=== PATIENT | female | born 1975 | race Caucasian/White ===

== ENCOUNTER → 2019-05-30 09:55 | Outpatient (CLI) | payer OTHER, SELFPAY ==
[2019-05-30 09:47] VITALS: BMI 21.7
--- NOTE | 2019-05-30 10:00 | RAD_ITS ---
STUDY: X-RAY - RIGHT HAND REASON FOR EXAM: Bilateral hand pain and swelling, no specific injury. TECHNIQUE: 3 view(s) of the hand. COMPARISON: None. FINDINGS: Normal radiocarpal articulation. Normal distal radioulnar joint. Normal visualized carpal bones. Normal carpal articulations Normal carpometacarpal articulation of the thumb. Normal second through fifth carpometacarpal joints. Normal metacarpi. Normal metacarpophalangeal joint of the thumb. Normal interphalangeal joint of the thumb. Normal proximal and distal phalanges of the thumb. Normal metacarpophalangeal joints of the second through fifth fingers. Normal proximal and distal interphalangeal joints of the second through fifth fingers. Normal phalanges of the second through fifth fingers. The soft tissue structures are unremarkable. RAD/Hand Min 3 Views IMPRESSION: Normal x-ray examination of the right hand. Electronically Signed: Cameron Islas MD at 10:18 EDT Tel , Service support ,
--- NOTE | 2019-05-30 10:00 | RAD_ITS ---
STUDY: X-RAY - LEFT HAND REASON FOR EXAM: Bilateral hand pain and swelling, no specific injury. TECHNIQUE: 3 view(s) of the hand. COMPARISON: None. FINDINGS: Normal radiocarpal articulation. Normal distal radioulnar joint. There is a small bone island in the distal radius. Normal visualized carpal bones. Normal carpal articulations Normal carpometacarpal articulation of the thumb. Normal second through fifth carpometacarpal joints. Normal metacarpi. Normal metacarpophalangeal joint of the thumb. Normal interphalangeal joint of the thumb. Normal proximal and distal phalanges of the thumb. Normal metacarpophalangeal joints of the second through fifth fingers. Normal proximal and distal interphalangeal joints of the second through fifth fingers. Normal phalanges of the second through fifth fingers. The soft tissue structures are unremarkable. RAD/Hand Min 3 Views IMPRESSION: Normal x-ray examination of the left hand. Electronically Signed: Cameron Islas MD at 10:17 EDT Tel , Service support ,
[2019-05-30 15:44] LABS: Lyme Ab Screen Interpretation REF LAB
[2019-05-30 17:45] LABS: Absolute Lymphocyte Count 3.16 X10^3/uL (0.83-4.51); Absolute Neutrophil Count 3.5 X10^3/uL (2.0-7.7); Basophil# 0.03 X10^3/uL; Basophil% 0.4 % (0-1); Eosinophil# 0.14 X10^3/uL; Eosinophils% 1.9 % (0-5); Hematocrit 41.7 % (37-47); Hemoglobin 14.2 g/dL (12.0-15.0); Lymphocyte # 3.16 X10^3/ul (4.0); Lymphocyte % 43.1 % (19-41); Mean Corp Hgb Conc 34.1 g/dL (32-36); Mean Corpuscular Hgb 30.6 pg (27.0-32.0); Mean Corpuscular Volume 89.9 fL (81-99); Mean Platelet Vol. 9.2 fl (6.2-12.0); Monocyte# 0.49 X10^3/uL; Monocyte% 6.7 % (0-10); NRBC Flagged by Analyzer 0 % (0-5); Neutrophil # 3.49 X10^3/uL (2.7-7.7); Neutrophil % 47.6 % (47-70); Platelet Count 259 K/mm3 (150-450); RBC Distribution Width CV 11.9 % (11.6-14.6); RBC Distribution Width SD 38.7 fl (35.1-43.9); Red Blood Count 4.64 M/mm3 (4.2-5.4); White Blood Count 7.3 K/mm3 (4.4-11.0)
[2019-05-30 18:07] LABS: Erythrocyte Sedimentation Rate < 1 mm/hr (0-20)
[2019-05-30 18:11] LABS: CRP < 2.90 mg/L (0.0-3.0); Rheumatoid Factor < 10.0 IU/mL (<15)
[2019-06-04 13:57] LABS: ANTINUCLEAR ANTIBODIES DIRECT Negative (Negative)
[2019-06-05 14:38] LABS: CCP IgG Antibodies 5 units (0-19); HLA B27 Negative (.); Lyme Scn Total Ab w/Rflx <0.91 ISR (0.00-0.90)
== END ==
PROVIDERS: Family Provider Family Medicine; PCP Family Medicine; Referring Provider Orthopaedic Surgery; Visit Provider Orthopaedic Surgery
DX: G56.23 Lesion of ulnar nerve, bilateral upper limbs (principal); M62.541 Muscle wasting and atrophy, not elsewhere classified, right hand; M79.641 Pain in right hand; M79.642 Pain in left hand
CPT/HCPCS: 36415; 73130; 81374; 85025; 85652; 86038; 86140; 86200; 86431; 86618

== ENCOUNTER → 2019-06-19 10:37 | Outpatient (CLI) | payer OTHER, SELFPAY ==
[2019-05-30 09:47] VITALS: BMI 21.7
--- NOTE | 2019-06-19 11:31 | RAD_ITS ---
STUDY: X-RAY - PELVIS AND RIGHT HIP REASON FOR EXAM: Female, 43 years old. Polyarthralgia TECHNIQUE: 3 views of the pelvis and hip. COMPARISON: None. FINDINGS: There is a non-specific bowel gas pattern. Normal visualized soft tissue structures. Normal bilateral iliac wings, sacroiliac joints and visualized sacrum. Normal bilateral superior and inferior pubic rami. Normal pubic symphysis. Normal bilateral ischial tuberosities. Normal visualized femoral head. Normal acetabulum. Normal hip joint. RAD/HIP, UNI W/ Pelvis 2-3 Views IMPRESSION: Normal x-ray examination of the pelvis and hip. Electronically Signed: Ozzie Best MD at 16:23 EDT , Service support ,
--- NOTE | 2019-06-19 11:37 | RAD_ITS ---
STUDY: X-RAY - LEFT HAND REASON FOR EXAM: Female, 43 years old. Polyarthralgia TECHNIQUE: 2 view(s) of the hand. COMPARISON: Prior study of 05/30/2019 FINDINGS: Normal radiocarpal articulation. Normal distal radioulnar joint. Normal visualized carpal bones. Normal carpal articulations Normal carpometacarpal articulation of the thumb. Normal second through fifth carpometacarpal joints. Normal metacarpi. Normal metacarpophalangeal joint of the thumb. Normal interphalangeal joint of the thumb. Normal proximal and distal phalanges of the thumb. Normal metacarpophalangeal joints of the second through fifth fingers. Normal proximal and distal interphalangeal joints of the second through fifth fingers. Normal phalanges of the second through fifth fingers. The soft tissue structures are unremarkable. RAD/Hand 2 Views IMPRESSION: Normal x-ray examination of the hand. Electronically Signed: Ozzie Best MD at 16:20 EDT , Service support ,
--- NOTE | 2019-06-19 11:40 | RAD_ITS ---
STUDY: X-RAY - RIGHT HAND REASON FOR EXAM: Female, 43 years old. Polyarthralgia TECHNIQUE: 2 view(s) of the hand. COMPARISON: Prior study of 05/30/2019 FINDINGS: Normal radiocarpal articulation. Normal distal radioulnar joint. Normal visualized carpal bones. Normal carpal articulations Normal carpometacarpal articulation of the thumb. Normal second through fifth carpometacarpal joints. Normal metacarpi. Normal metacarpophalangeal joint of the thumb. Normal interphalangeal joint of the thumb. Normal proximal and distal phalanges of the thumb. Normal metacarpophalangeal joints of the second through fifth fingers. Normal proximal and distal interphalangeal joints of the second through fifth fingers. Normal phalanges of the second through fifth fingers. The soft tissue structures are unremarkable. RAD/Hand 2 Views IMPRESSION: Normal x-ray examination of the hand. Electronically Signed: Ozzie Best MD at 16:21 EDT , Service support ,
[2019-06-19 12:09] LABS: CPK Total, Creatine Kinase 94 U/L (26-192)
[2019-06-19 12:15] LABS: Vitamin D,25 Hydroxy 31.4 ng/mL (29.95-100.01)
[2019-06-21 12:24] LABS: CCP IgG Antibodies 3 units (0-19); t-Transglutaminase IgA <2 U/mL (0-3)
== END ==
PROVIDERS: Family Provider Family Medicine; PCP Family Medicine
DX: M25.50 Pain in unspecified joint (principal)
CPT/HCPCS: 36415; 73120; 73502; 82306; 82550; 83516; 86038; 86200; 86235

== ENCOUNTER → 2021-01-16 09:01 | Outpatient (CLI) | payer OTHER, SELFPAY ==
[2019-05-30 09:47] VITALS: BMI 21.7
[2021-01-16 10:26] LABS: Anion Gap 4 (5-15); BUN 10 mg/dL (7-18); BUN/Creat Ratio 11.7 RATIO (10-20); Chloride 105 mmol/L (98-107); Cholesterol 214 mg/dL (200); Creatinine, Serum 0.86 mg/dL (0.55-1.02); EST Glomerular Filtration Rate 77 mL/min (>60); Est Glom Filt Rate - Afr Amer 93 mL/min (>60); Free T3 2.9 pg/mL (2.18-3.98); Glucose 90 mg/dL (74-106); High Density Lipoprotein 45 mg/dL; Potassium 3.9 mmol/L (3.5-5.1); Sodium Level 138 mmol/L (136-145); T4 Free Direct 1.05 ng/dL (0.76-1.46); T4 Total, Thyroxin 9.2 ug/dL (4.8-13.9); Thyroid Stim Hormone (TSH) 1.17 uIU/mL (0.358-3.74); Triglycerides 54 mg/dL; Very Low Density Lipoprotein 11 mg/dL (5-40)
[2021-01-19 16:08] LABS: Thyroid Peroxidase AB 13 IU/mL (0-34)
[2021-01-19 19:25] LABS: Thyroglobulin Antibody < 1.0 IU/mL (0.0-0.9); Thyroxin Bind Glob (TBG) 19 ug/mL (13-39)
== END ==
PROVIDERS: PCP Family Medicine; Referring Provider Family Medicine; Visit Provider Family Medicine
DX: Z00.00 Encounter for general adult medical examination without abnormal findings (principal); M79.7 Fibromyalgia; E03.9 Hypothyroidism, unspecified
CPT/HCPCS: 36415; 80048; 80061; 84436; 84439; 84442; 84443; 84481; 86376; 86800

== ENCOUNTER → 2022-04-01 | Outpatient (CLI) | payer OTHER, SELFPAY ==
--- NOTE | 2022-04-01 14:29 | BI_ITS ---
MAMMOGRAPHY - BILATERAL DIAGNOSTIC REASON FOR EXAM: Female, 46 years old. ABNORMAL MAMM PERTINENT HISTORY: Non-contributory. TECHNIQUE: Digital examination. Mediolateral oblique (MLO) and craniocaudad (CC) views of both breasts were obtained. CAD: CAD was performed on this study. COMPARISON: 10/12/2021, 08/04/2021 FINDINGS: Breast Composition: The breasts are extremely dense, which lowers the sensitivity of mammography. There are no dominant masses or suspicious calcifications. No other significant abnormalities are identified. BI/DIAG MAMM W/CAD, BILAT IMPRESSION: Stable bilateral diagnostic mammogram. Ultrasound of the previously noted mass in the right breast is recommended. ASSESSMENT CATEGORY: BIRADS Category 0: Incomplete. Need additional imaging evaluation. A letter regarding these results will be sent to the patient by the facility within 30 days. FOLLOW UP RECOMMENDATION: Ultrasound Recommended. (I) Approximately 10% of breast cancers are not detected by mammography. A normal mammogram should not delay biopsy of a clinically suspicious abnormality. Electronically Signed: Neil Restrepo MD at 15:26 EDT ,
--- NOTE | 2022-04-01 14:33 | US_ITS ---
STUDY: ULTRASOUND BREAST - RIGHT REASON FOR EXAM: Female, 46 years old. Short interval follow-up TECHNIQUE: Axial and longitudinal images of the RIGHT breast were performed with a high resolution ultrasound transducer. # OF IMAGES: 21 COMPARISON: Diagnostic mammogram earlier today, ultrasound 12/02/2020 FINDINGS: RIGHT Breast: Heterogeneous background echotexture. At 10 o''clock, 5 cm from nipple, ultrasound demonstrates an increase in the size of the oval parallel circumscribed hypoechoic mass with no posterior features from 3 x 9 mm to 4 x 11 mm an ultrasound-guided vacuum-assisted core biopsy is recommended.: Next At 10 o''clock, 3 cm nipple, ultrasound demonstrates no change in the 5 mm oval parallel circumscribed hypoechoic mass. Breast MRI may be useful to evaluate both areas. US/Breast Limited Unilateral IMPRESSION: Enlarging hypoechoic mass and ultrasound-guided vacuum-assisted core biopsy is recommended. MRI may also be useful for the other hypoechoic area. ASSESSMENT CATEGORY: BIRADS Category 4: Suspicious - Biopsy Should Be Considered. A letter regarding these results will be sent to the patient by the facility within 30 days. Electronically Signed: Neil Restrepo MD at 16:33 EDT ,
== END | disposition home or self-care (01) ==
LOC: OPBI 14:28
PROVIDERS: PCP Family Medicine; Visit Provider Family Medicine
DX: D24.1 Benign neoplasm of right breast (principal); R92.2 Inconclusive mammogram
CPT/HCPCS: 76642; 77062; 77066; G0279

== ENCOUNTER → 2022-04-18 | Outpatient (CLI) | payer OTHER, SELFPAY ==
--- NOTE | 2022-04-18 | BRBX_PTH ---
PATIENT: GINA GARCIAS LOC: [facility] U#:[id number] AGE/SX: 46/F ROOM: RE04/18/[address]: Dr. Tiffany Solomon MD : 1975 BED: DIS: 04/18/2022 SPEC #: [id number] RECD: 04/18/22 11:49 STATUS: BRENDAN REQ #: [id number] JOEL: 04/18/22 00:[address]: Tiffany Solomon DEPT: SURGICAL PATHOLOGY RECD BY: Damaris Friedman ENTERED: 04/18/22 12:49 SP TYPE: BREAST BX OTHR DR: Dr. Ngozi Paredes MD Tissues: A - Right breast, NOS B - Right breast, NOS Procedures: Surgery Specimen Level IV HEADER OPERATION: Right breast biopsy x2 PRE-OP DIAGNOSIS: Right breast mass x2 TISSUE SUBMITTED: A ? Right breast mass 10 o?clock, 5 cm, B - Right breast mass 11 o?clock, 3 cm MICROSCOPIC DIAGNOSIS A. Right breast mass, 10 o?clock, 5 cm from nipple, core biopsy: Fragments of benign breast tissue, no pathologic diagnosis. Negative for atypia or malignancy. See comment. B. Right breast mass, 11 o?clock, 3 cm from nipple, core biopsy: Fragments of benign breast tissue with focal dense fibrosis and ductal dilatation. Negative for atypia or malignancy. See comment. SJ:dakota 04/19/2022 COMMENT A & B. Correlation with clinical, radiologic findings and appropriate follow up are necessary. MICROSCOPIC DESCRIPTION Slides are reviewed. GROSS DESCRIPTION A - Received in fixative is one container labeled with the patient's name and designated right breast, 10 o?clock, 5 cm. The specimen consists of multiple fragments of woods-yellow fibroadipose tissue that in aggregate measure 2 x 0.2 x 0.1 cm. The entire specimen is submitted in one cassette. B - Received in fixative is one container labeled with the patient's name and designated right breast, 11 o?clock, 3 cm. The specimen consists of multiple elongated fragments of woods-yellow fibroadipose tissue that in aggregate measure 1.5 x 0.3 x 0.1 cm. The entire specimen is submitted in one cassette. / ALPHONSE:dakota 04/18/2022 TC:5 CPT: 76382 x2
--- NOTE | 2022-04-18 10:05 | US_ITS ---
STUDY: ULTRASOUND BREAST - RIGHT REASON FOR EXAM: Female, 46 years old. Ultrasound guided right breast biopsy. TECHNIQUE: Axial and longitudinal images of the RIGHT breast were performed with a high resolution ultrasound transducer. # OF IMAGES: 33 COMPARISON: Comparison is made with prior ultrasound of the breasts dated 04/01/2022. FINDINGS: RIGHT Breast: Under direct sonographic guidance, the surgeon performed an ultrasound-guided breast biopsies of the nodular density at the 10 o''clock position of the breast are 5 cm from the nipple and the nodular density at the 11 o''clock position of the breast 3 cm from nipple. US/US Breast Biopsy 1st Lesion IMPRESSION: Ultrasound guided breast biopsy. ASSESSMENT CATEGORY: BIRADS Category 2: Benign. A letter regarding these results will be sent to the patient by the facility within 30 days. Electronically Signed: Elmo Wilson MD at 12:22 EDT ,
--- NOTE | 2022-04-18 11:34 | PCM.OPRPT ---
Report of Operation Date of Procedure: 04/18/22 Pre-Operative Diagnosis: Right breast mass x2 Post-Operative Diagnosis: Same Surgery/Procedure Performed:: Ultrasound guided right breast biopsy x2 Surgeon: Tiffany Solomon Type of Anesthesia: Local Specimen's removed: 1. Right breast mass 10:00 5 cm from nipple, 2. Right breast mass 11 cm 3 cm from the nipple Estimated Blood Loss (mL): Minimal Description of Procedure: Procedure: Right ultrasound-guided core biopsy x2 Indications: 46year-old female with the hypoechoic solid nodule at 10:00 and 11:00 in the right breast 5 cm and 3 cm from the nipple. Risk benefits were discussed the patient and she elected to proceed with ultrasound guided core biopsy with clip placement Description of procedure: Patient was brought into the ultrasound room in the right breast was marked. An additional third lesion was found at the 10:00 3 cm from the nipple however reviewed previous ultrasounds this was not the one that was being followed actually it was 11:00 3 cm from the nipple that had been followed for the last 4 years. We will plan to just biopsy the 10:00 5 cm from the nipple and 11:00 3 cm from the nipple today. A timeout was completed verifying correct patient, procedure, site, specially, prior to beginning procedures. The right breast was prepped and draped in usual sterile fashion and using local anesthesia was obtained with 1% lidocaine with epi. Both lesions were done similarly. The lesion was located with the ultrasound. Small incision was made with 11 blade to introduced the BARD MaxCore through the skin?same incision used for both lesions. Under ultrasound guidance multiple core samples were obtained using then 14-gauge BARD MaxCore and sent in formalin for pathology. The Bard dual ultra-(ribbon at 10:00 5 cm nipple, coil at 11:00 3 cm from nipple) clip was then deployed into the biopsy cavity under ultrasound guidance and a picture was taken. Upon completion procedure hemostasis was obtained and a Steri-Strip and OpSite were placed. Patient also had a 2 view mammography for clip verification. The patient tolerated the procedure well and was discharged from the breast imaging department good condition. Complications none
== END | disposition home or self-care (01) ==
PROVIDERS: PCP Family Medicine; Visit Provider Surgery
DX: D24.1 Benign neoplasm of right breast (principal)
CPT/HCPCS: 19083; 19084; 88305

== ENCOUNTER → 2022-05-10 | Outpatient (CLI) | payer OTHER, SELFPAY ==
--- NOTE | 2022-05-10 10:16 | MRI_ITS ---
STUDY: BILATERAL BREAST MR WITHOUT AND WITH CONTRAST REASON FOR EXAM: Female, 46 years old. History of benign right breast biopsy. Painful breasts. Further workup. TECHNIQUE: Multi-sequence multi-echo imaging of both breasts was performed with a dedicated breast coil. T1-weighted and T2-weighted images were performed before the administration of contrast. T1-weighted images were also performed after the intravenous administration of 12ml of Dotarem. COMPARISON: Ultrasound guided images of the right breast biopsy 04/18/2022, right breast ultrasound dated 04/01/2022 and bilateral mammogram dated 04/01/2022. FINDINGS: RIGHT BREAST: The breast tissue is markedly dense with minimal background enhancement. Tissue clip artifact from the areas of biopsy noted. There are no abnormal enhancing masses or areas of non-mass enhancement in the right breast. LEFT BREAST: The breast tissue is markedly dense with minimal background enhancement. There are no abnormal enhancing masses or areas of non-mass enhancement in the left breast. There are no enlarged or abnormal lymph nodes. There is no abnormality in the visualized regions of the chest or liver. MRI/Breast Bilateral W/O and W IMPRESSION: No abnormality on the breast MRI with contrast. 6 month follow-up right breast ultrasound may be considered for follow-up of these areas biopsied. CATEGORY: BIRADS Category 2: Benign. A letter regarding these results will be sent to the patient by the facility within 30 days. Electronically Signed: Theo Osorio MD at 12:29 EDT ,
== END | disposition home or self-care (01) ==
LOC: MRI 10:16
PROVIDERS: PCP Family Medicine; Referring Provider Surgery; Visit Provider Surgery
DX: R92.8 Other abnormal and inconclusive findings on diagnostic imaging of breast (principal); N64.4 Mastodynia
CPT/HCPCS: 77049; A9575; A4216; C8908

== ENCOUNTER 2022-05-31 09:31 | Day surgery (SDC) | payer OTHER, SELFPAY ==
[2022-05-31 10:04] VITALS: BP 117/79; PULSE 97; RESP 16; TEMP 37.2; O2SAT 100; BMI 21.3
--- NOTE | 2022-05-31 10:10 | PCM.HP.STD ---
HPI - General HPI Narrative GINA GARCIAS, is a 46 F who presents for excisional right breast biopsy x2. Patient previously underwent right breast biopsy which was discordant as 1 biopsy did show normal breast tissue. Patient does complain of pain and tenderness at this area. Patient's is interested in having both of them excised. Patient's other biopsy showed focal dense fibrosis and ductal dilatation. [facility] Medical History (Updated 05/24/22 @ 13:08 by Kylee Martinez) Easy bruising Fibromyalgia History of stress test Injury of head and neck Migraine headache Non-smoker Thyroid disease Home Medications biotin 5 mg capsule 5 mg PO DAILY 05/30/19 [History Last Taken Unknown] ibuprofen 200 mg tablet (Motrin IB) 200 mg PO Q6H PRN Pain 05/30/19 [History Last Taken Unknown] lactobacillus combination no.8 3 billion cell capsule (Adult Probiotic) 3,000 mmu cells PO DAILY 05/30/19 [History Last Taken Unknown] naltrexone 50 mg tablet 5 mg PO QHS 04/07/22 [History Last Taken 05/30/22] Seravital 4 cap PO/SL DAILY 05/24/22 [History Last Taken Unknown] Allergy/AdvReac Type Severity Reaction Status Date / Time bee venom protein (honey bee) Allergy Anaphylaxis Verified 05/24/22 12:59 meperidine [From Demerol] AdvReac vomitting Verified 05/24/22 12:59 morphine AdvReac vommiting Verified 05/24/22 12:59 Family History (Updated 04/07/22 @ 09:52 by Janessa Oh) Brother Heart disease Asthma Father Hypertension COPD (chronic obstructive pulmonary disease) Surgical History (Updated 05/24/22 @ 13:08 by Kylee Martinez) History of colonoscopy History of hernia repair Hx of tonsillectomy Hx of wisdom tooth extraction Social History (Updated 04/07/22 @ 09:52 by Janessa Oh) Smoking Status: Never smoker Physical Exam Const alert, oriented x3 and no apparent distress HEENT normocephalic and head/scalp atraumatic Chest Chest Narrative: Right breast--previous biopsy incision healing well, fibroglandular breast tissue. Resp normal respiratory effort Cardio regular rate GI soft to palpation and non-tender; Negative for non-distended Extremity no clubbing, cyanosis or edema Neuro CN's II-XII intact bilaterally Psych mental status grossly normal Assessment & Plan Assessment/Plan (1) Abnormal mammogram of right breast: PLAN: Plan Plan for excisional biopsy x2 possibly 3 of the right breast at 10:00 5 cm from nipple and 11:00 3 cm from the nipple. Discussed with patient and her that due to size of breast would not plan to do the third and only just [place] with the 2 that were originally biopsied as likely cosmesis could become more of an issue trying to take all 3. The third area was also quite small at about 3 mm hypoechoic can continue to monitor with ultrasound. Discussed the procedure including risks but not limited to bleeding, infection, seroma, cosmesis, and anesthesia patient had no further question this time. Tiffany Solomon M.D. Pager: [phone] [facility] [address] [place] [address] [address] [place] [address] Office: [phone] Procedure Criteria Type of Procedure Procedure Type: Elective Elective Risks - COVID COVID Risk Discussion: The surgeon/proceduralist and patient have discussed in detail the risk of exposure to and/or potential harm posed by the COVID-19 virus with having a surgery/procedure at this time versus the risk of delaying the surgery/procedure. It is not possible to know either the risk of delaying the surgery or procedure or chance of getting an infection with perfect accuracy, but a joint decision was made between the patient and the surgeon/proceduralist to proceed at this time with the scheduled surgery/procedure as indicated on the consent form.
[2022-05-31 10:11] LABS: Internal QC Validated? YES +Cl - CLEAR BKGD; Pregnancy, Urine Negative Negative
[2022-05-31] MEDS: Lactated Ringers 1,000 ML 15 ML IV (10:17)
--- NOTE | 2022-05-31 11:46 | BRBX_PTH ---
PATIENT: GINA GARCIAS LOC: [facility] – [place], [place] U#:[id number] AGE/SX: 46/F ROOM: RE05/31/[address]: Dr. Tiffany Solomon MD : 1975 BED: DIS: 05/31/2022 SPEC #: [id number] RECD: 05/31/22 11:55 STATUS: BRENDAN REHayley #: [id number] JOEL: 05/31/22 11:[address]: Tiffany Solomon DEPT: SURGICAL PATHOLOGY RECD BY: Jono Church ENTERED: 05/31/22 12:01 SP TYPE: BREAST BX OTHR DR: Dr. Ngozi Paredes MD Tissues: Right breast, NOS Procedures: Surgery Specimen Level IV HEADER OPERATION: Ultrasound-guided right breast lumpectomy x2 PRE-OP DIAGNOSIS: Right breast mass x2 TISSUE SUBMITTED: Right breast mass, long stitch - lateral, short stitch - anterior MICROSCOPIC DIAGNOSIS Right breast mass, ultrasound-guided needle localization x2: Fibroadenomas. Focal mild intraductal hyperplasia without atypia. Negative for malignancy. See comment. ALPHONSE:dakota 06/02/2022 COMMENT The fibroadenomas are present in blocks 2 & 3 (measuring 0.3 cm in greatest dimension) close to medial portion of the specimen and blocks 7 & 8 close to lateral portion of the breast tissue (measuring 0.4 cm in greatest dimension). Both masses are measured microscopically. Changes consistent with previous biopsy site are also noted adjacent to the both fibroadenomas. Please make reference to previous specimen ([id number]) right breast mass, 10 o?clock, 5 cm from nipple, core biopsy with diagnosis of ?fragments of benign breast tissue, no pathologic diagnosis? and right breast mass, 11 o?clock, 3 cm from nipple, core biopsy with diagnosis of ?fragments of benign breast tissue with focal dense fibrosis and ductal dilatation.? MICROSCOPIC DESCRIPTION Slides are reviewed. GROSS DESCRIPTION Received in fixative is one container labeled with the patient's name and designated right breast mass. The specimen consists of a piece of fibroadipose tissue with needle localization measuring 3.5 x 2.5 x 2 cm. The specimen is oriented as follows: long stitch - lateral, short stitch - anterior. The specimen is inked as follows: anterior - yellow, posterior - black, superior - blue, inferior - green, medial - red and lateral - orange. The specimen is serially sectioned and does not reveal any obvious mass lesion. The entire specimen is submitted in eight cassettes from medial to lateral margin. Cassette 1 contains the most medial portion and cassette 8 contains the most lateral portion. / SJ:rg 06/01/2022 TC:1 CPT: 56295
--- NOTE | 2022-05-31 11:49 | BI_ITS ---
SURGICAL BREAST SPECIMEN RADIOGRAPH CLINICAL: Document presence of tissue clip marker in biopsy specimen. FINDINGS: Specimen shows presence of tissue clip marker. Electronically Signed: Elmo Wilson MD at 12:28 EDT , BI/Breast Biopsy Specimen IMPRESSION: undefined
[2022-05-31] MEDS: Cefazolin 2 GM in 0.9% Normal Saline 100 ML IV (11:55)
[2022-05-31] MEDS: Bupivacaine 0.25% 30 ML Vial (11:57)
--- NOTE | 2022-05-31 12:08 | PCM.OPRPT ---
Report of Operation Date of Procedure: 05/31/22 Pre-Operative Diagnosis: Right breast mass x2 Post-Operative Diagnosis: Same Surgery/Procedure Performed:: Excisional right breast biopsies x2 Surgeon: Tiffany Solomon Type of Anesthesia: General/Supplemental Anesthesiologist: Dany Burgess Special Medications: Ancef 2 g IV x1 Specimen's removed: Right breast mass x2 (both in same specimen) Estimated Blood Loss (mL): < 10 cc Description of Procedure: The patient was taken to the operating room and general anesthesia was induced. The right breast and axilla were prepped and draped in usual sterile fashion. A timeout was completed verifying correct patient, procedure, site, positioning, special equipment prior to beginning procedure. Ultrasound was use for localization of the breast mass x2 using the Kopan's needle. The wire was placed just in 10:00 5 cm from the nipple mass/medial to the 11:00 3 cm from the nipple mass. A radial incision was planned in such a way as to minimize the amount of dissection to reach both masses. Flaps were raised in the location of the wire confirmed. The wire was delivered into the wound. 2 silk [id number] stay suture was placed around the wire and used for traction. Dissection was then taken down circumferentially, taking care to include the entire localization needle and wide margin of grossly normal tissue. The specimen and entire localizing wire were removed. The specimen was oriented and sent to radiology with the localization studies. Confirmation was received that the entire target lesion had been resected. The cavities were irrigated. Hemostasis was checked. The breast incision was closed with interrupted sutures of 3-0 Vicryl and subcuticular sutures of 4-0 Monocryl. No attempt was made to close the space. supportive bra placed. The patient tolerated procedure well was taken to the postanesthesia care in stable condition Complications none
--- NOTE | 2022-05-31 12:11 | DCINST_ITS ---
Discharge Instructions Diet Discharge Diet: No restrictions Activity Discharge Activity: May Not Drive (for 2-3 days or while taking narcotic pain meds.) May shower in (days): 1 Lifting Restrictions: 10 pounds for 1 week. Dressing / Incision Call your doctor if your incision/area has: Continuous Slow Oozing, Sudden Increased Bleeding, Increased Pain/ Swelling and Increased Redness Call your doctor if you observe: Fever of 101 or Higher Suture Line Care: Avoid Pulling/Pushing Remove Dressing in: 1 day Additional Dressing/Incision Instructions:: Remove bulky dressing tomorrow. May leave any op-site dressing for 3-4 days. Okay to remove Steri-Strips from the breast incision in 7 to 10 days Follow Up Care Please Follow Up With: Tiffany Solomon MD When: Please call [phone] for an appointment to be seen in 1 week. Test Results: Test results from this visit will be discussed in further detail at your follow- up appointment, if applicable. Discharge Plan Admission Attending Provider: Tiffany Solomon Primary Care Provider: Ngozi Paredes Discharge Orders/Prescriptions Prescriptions: New acetaminophen-codeine 300-30 mg tablet 1 tab PO Q6H PRN (Reason: pain) Qty: 7 0RF Continued Adult Probiotic 3 billion cell capsule 3,000 mmu cells PO DAILY biotin 5 mg capsule 5 mg PO DAILY ibuprofen [Motrin IB] 200 mg tablet 200 mg PO Q6H PRN (Reason: Pain) naltrexone 50 mg tablet 5 mg PO QHS Seravital 4 cap PO/SL DAILY Referrals / Follow Up: Ngozi Paredes MD [Primary Care Provider] - Disposition Disposition (needs filled in before D/C Order can be placed): Home, Self Care
[2022-05-31 12:15] VITALS: BP 113/72; BP 117/79; PULSE 70; RESP 12; TEMP 36.6; O2SAT 100
[2022-05-31 12:30] VITALS: BP 105/73; BP 117/79; PULSE 77; RESP 16; O2SAT 97
[2022-05-31 12:45] VITALS: BP 117/79; BP 99/86; PULSE 69; RESP 16; TEMP 36.6; O2SAT 100
[2022-05-31] MEDS: Acetaminophen/Codeine #3 Tablet 2 TABLET PO (13:25)
[2022-05-31 13:59] VITALS: BP 100/62; BP 117/79; PULSE 70; RESP 16; O2SAT 98
== END 2022-05-31 14:02 | disposition home or self-care (01) ==
LOC: SDC 09:32 → AC 09:33
PROVIDERS: Anesthesiology; PCP Family Medicine; Referring Provider Surgery; Visit Provider Surgery
PROC: (CPT 19301; principal; 2022-05-31 10:45)
DX: D24.1 Benign neoplasm of right breast (principal); N60.91 Unspecified benign mammary dysplasia of right breast; M79.7 Fibromyalgia
CPT/HCPCS: 19301; 76098; 81025; 88305; J7120; J2405

== ENCOUNTER → 2023-01-28 | Outpatient (CLI) | payer OTHER, SELFPAY ==
[2023-01-28 10:20] LABS: ALB/GLOB Ratio 1.4 RATIO (0.9-2.4); AST(SGOT) 19 U/L (15-37); Alanine Aminotransfer ALT/SGPT 32 U/L (13-56); Albumin, Serum 4.2 g/dL (3.2-5.0); Alkaline Phosphatase 48 U/L (45-117); Anion Gap 3 (5-15); BUN 14 mg/dL (7-18); BUN/Creat Ratio 16.5 RATIO (10-20); Calcium,Total 9.1 mg/dL (8.5-10.1); Chloride 106 mmol/L (98-107); Cholesterol 187 mg/dL (200); Creatinine, Serum 0.85 mg/dL (0.55-1.02); EST Glomerular Filtration Rate 77 mL/min (>60); Est Glom Filt Rate - Afr Amer 93 mL/min (>60); Glucose 95 mg/dL (74-106); High Density Lipoprotein 50 mg/dL; Potassium 3.6 mmol/L (3.5-5.1); Protein, Total 7.2 g/dL (6.4-8.2); Sodium Level 136 mmol/L (136-145); Triglycerides 59 mg/dL; Very Low Density Lipoprotein 12 mg/dL (5-40)
[2023-01-28 10:35] LABS: Absolute Lymphocyte Count 2.37 X10^3/uL (0.83-4.51); Absolute Neutrophil Count 2.5 X10^3/uL (2.0-7.7); Basophil# 0.03 X10^3/uL; Basophil% 0.6 % (0-1); Eosinophils% 1.8 % (0-5); Hematocrit 41.8 % (37-47); Hemoglobin 13.7 g/dL (12.0-15.0); Lymphocyte # 2.37 X10^3/ul (0.83-4.51); Lymphocyte % 43.7 % (19-41); Mean Corp Hgb Conc 32.8 g/dL (32-36); Mean Corpuscular Volume 91.5 fL (81-99); Mean Platelet Vol. 9.6 fl (6.2-12.0); Monocyte# 0.36 X10^3/uL; Monocyte% 6.6 % (0-10); NRBC Flagged by Analyzer 0 % (0-5); Neutrophil # 2.54 X10^3/uL (2.7-7.7); Neutrophil % 46.9 % (47-70); Platelet Count 296 K/mm3 (150-450); RBC Distribution Width CV 12.8 % (11.6-14.6); RBC Distribution Width SD 42.7 fl (35.1-43.9); Red Blood Count 4.57 M/mm3 (4.2-5.4); White Blood Count 5.4 K/mm3 (4.4-11.0)
== END | disposition home or self-care (01) ==
LOC: LAB 09:02
PROVIDERS: PCP Family Medicine; Visit Provider Family Medicine
DX: Z00.01 Encounter for general adult medical examination with abnormal findings (principal)
CPT/HCPCS: 36415; 80053; 80061; 85025

== ENCOUNTER → 2023-03-13 | Outpatient (CLI) | payer OTHER, SELFPAY ==
--- NOTE | 2023-03-13 08:59 | BI_ITS ---
MAMMOGRAPHY - BILATERAL DIAGNOSTIC REASON FOR EXAM: Female, 47 years old. History of a right excisional breast biopsy for fibroadenoma. PERTINENT HISTORY: Non-contributory. TECHNIQUE: Digital bilateral breast itzel (3D mammographic acquisition) in the CC and MLO projections. 2-D mediolateral oblique (MLO) and craniocaudad (CC) views of both breasts were obtained. CAD: Full Field Digital Mammography with Computer Added Detection was performed. COMPARISON: Comparison is made with prior study dated April 01, 2022. FINDINGS: Breast Composition: The breasts are extremely dense, which lowers the sensitivity of mammography. I suspect a 1.4 cm well-defined nodule in the retroareolar region of the right breast. Correlation with ultrasound is recommended. No other significant abnormalities are identified. BI/DIAG MAMM W/CAD, BILAT IMPRESSION: I suspect a 1.4 cm well-defined nodule in the retroareolar region of the right breast. Correlation with ultrasound is recommended. ASSESSMENT CATEGORY: BIRADS Category 0: Incomplete. Need additional imaging evaluation. A letter regarding these results will be sent to the patient by the facility within 30 days. Approximately 10% of breast cancers are not detected by mammography. A normal mammogram should not delay biopsy of a clinically suspicious abnormality. Electronically Signed: Elmo Wilson MD at 10:06 EDT ,
--- NOTE | 2023-03-13 09:28 | US_ITS ---
STUDY: ULTRASOUND BREAST - RIGHT REASON FOR EXAM: Female, 47 years old. History of fibroadenoma resections. TECHNIQUE: Axial and longitudinal images of the RIGHT breast were performed with a high resolution ultrasound transducer. # OF IMAGES: 30 COMPARISON: Comparison is made with prior examination dated April 18, 2022. FINDINGS: RIGHT Breast: The upper outer quadrant of the right breast was examined with ultrasound. No sonographic abnormality is seen. US/Breast Limited Unilateral IMPRESSION: No sonographic abnormality is seen at this time. ASSESSMENT CATEGORY: BIRADS Category 1: Negative. A letter regarding these results will be sent to the patient by the facility within 30 days. Electronically Signed: Elmo Wilson MD at 10:16 EDT ,
== END | disposition home or self-care (01) ==
PROVIDERS: PCP Family Medicine; Referring Provider Surgery; Visit Provider Surgery
DX: D24.1 Benign neoplasm of right breast (principal); R92.8 Other abnormal and inconclusive findings on diagnostic imaging of breast
CPT/HCPCS: 76642; 77062; 77066; G0279

== ENCOUNTER 2023-09-26 08:42 | Day surgery (SDC) | payer OTHER, SELFPAY ==
[2023-09-26] VITALS (7 sets, daily range): BP systolic 97–108; BP diastolic 60–71; PULSE 63–80; RESP 16–18; TEMP 36.7–37.3; O2SAT 99–100; BMI 22.7
--- NOTE | 2023-09-26 09:03 | H&P.OPEN ---
[facility] - General General Date of Service: 09/26/23 HPI Narrative GINA GARCIAS, is a 47 F who presents for screening colonoscopy. Patient had a colonoscopy when she was 22 due to intestinal issues at that time and negative per patient. Patient denies any family history of colon cancer. Patient denies any chronic abdominal pain/nausea/vomiting/reflux. Patient has bowel movements daily denies any blood. [facility] Medical History (Updated 09/20/23 @ 12:07 by Meagan Chinchilla) Easy bruising Fibromyalgia History of stress test Injury of head and neck Migraine headache Non-smoker Syncope Thyroid disease Home Medications ibuprofen 200 mg tablet (Motrin IB) 200 mg PO Q6H PRN Pain 05/30/19 [History Last Taken Unknown] lactobacillus combination no.8 3 billion cell capsule (Adult Probiotic) 3,000 mmu cells PO DAILY 05/30/19 [History Last Taken Unknown] Seravital 4 cap PO/SL DAILY 05/24/22 [History Last Taken Unknown] elderberry fruit 350 mg capsule 700 mg PO DAILY 08/01/23 [History Last Taken Unknown] multivitamin (Daily Multi-Vitamin tablet) 1 tab PO DAILY 09/20/23 [History Last Taken Unknown] naltrexone 4.5 mg capsule 4.5 mg PO QHS 09/20/23 [History Last Taken Unknown] rizatriptan 10 mg tablet See Rx Instructions PO .COMPLEX 09/20/23 [History Last Taken Unknown] Allergy/AdvReac Type Severity Reaction Status Date / Time bee venom protein (honey bee) Allergy Anaphylaxis Verified 09/20/23 11:53 adhesive AdvReac skin Verified 09/20/23 11:53 irritation meperidine [From Demerol] AdvReac Vomiting Verified 09/20/23 11:53 morphine AdvReac Vomiting Verified 09/20/23 11:53 Family History Brother Heart disease Asthma Father Hypertension COPD (chronic obstructive pulmonary disease) Surgical History (Updated 09/20/23 @ 12:07 by Meagan Chinchilla) History of colonoscopy History of colposcopy History of hernia repair Hx of LASIK Hx of right breast biopsy Hx of tonsillectomy Hx of wisdom tooth extraction Social History (Updated 08/01/23 @ 09:00 by Shannan Vo) household members: spouse current occupational status: employed current occupation: Teacher Smoking Status: Never smoker Past Medical/Surgical History Planned Operation Planned Operative Procedure/s: COLONOSCOPY-OA Previous Hospitalizations/Surgeries HX Hospitalizations: No Any Problems With Anesthesia: No You/Your Family Experience Fever (Hyperthermia) With Anes: No Cholinesterase deficiency: No Cardiovascular Hx Hypertension: No Respiratory Hx Sleep Apnea: No Hx Respiratory Tract Infection/Cold (presently): No Do You Snore Loudly (louder than talking or can be heard): No Do You Often Feel Tired/ Fatigued/ Sleepy Dring Daytime?: No Has Anyone Observed You Stop Breathing During Sleep?: No Result (for STOP score): Negative Smoking Status: Never smoker Neurological Does patient have nerve stimulator: No Reproduction : No Miscellaneous Recent Exposure to Contagious Disease: No Allergies bee venom protein (honey bee) Allergy (Verified 09/20/23 11:53) Anaphylaxis adhesive Adverse Reaction (Verified 09/20/23 11:53) skin irritation meperidine [From Demerol] Adverse Reaction (Verified 09/20/23 11:53) Vomiting morphine Adverse Reaction (Verified 09/20/23 11:53) Vomiting Discharge Is Pt Admitted From a Correction, or a Custodial: No After D/C, Where Do you Plan to Go: Return Home Physical Exam Const alert, oriented x3 and no apparent distress HEENT normocephalic and head/scalp atraumatic Resp normal respiratory effort Cardio regular rate GI soft to palpation and non-tender; Negative for non-distended Palpation: Negative for guarding Extremity no clubbing, cyanosis or edema Skin no rashes or lesions noted Neuro CN's II-XII intact bilaterally Psych mental status grossly normal Assessment & Plan Assessment/Plan (1) Encounter for screening for malignant neoplasm of colon: Surgery Risks - Colonoscopy I discussed with the patient the risks of the procedure: Yes Risks Include but are not Limited To: Risks include but are not limited to: Bleeding, perforation requiring further surgery, inability to complete colonoscopy requiring barium enema.
[2023-09-26 09:09] LABS: Internal QC Validated? YES +Cl - CLEAR BKGD; Pregnancy, Urine Negative Negative; Record Kit Lot#,Urine Preg HCG0000667200
[2023-09-26] MEDS: Lactated Ringers 1,000 ML 15 ML IV (09:18)
--- NOTE | 2023-09-26 10:12 | OP.COLON_ITS ---
Patient Name: Violetta Jacinto Procedure Date: 09/26/2023 9:44 AM Date of : 1975 Age: 47 Procedure: Colonoscopy Indications: Screening for colorectal malignant neoplasm Providers: Tiffany Solomon MD Medicines: Monitored Anesthesia Care Patient Profile: This is a 47 year old female. Last Colonoscopy: more than 10 years ago. Complications: No immediate complications. Procedure: Pre-Anesthesia Assessment: - Prior to the procedure, a History and Physical was performed, and patient medications and allergies were reviewed. The patient's tolerance of previous anesthesia was also reviewed. The risks and benefits of the procedure and the sedation options and risks were discussed with the patient. All questions were answered, and informed consent was obtained. Prior Anticoagulants: The patient has taken no anticoagulant or antiplatelet agents. ASA Grade Assessment: Per anesthesia. After reviewing the risks and benefits, the patient was deemed in satisfactory condition to undergo the procedure. After I obtained informed consent, the scope was passed under direct vision. Throughout the procedure, the patient's blood pressure, pulse, and oxygen saturations were monitored continuously. The pediatric colonoscope was introduced through the anus and advanced to the cecum, identified by the appendiceal orifice, ileocecal valve and palpation. The colonoscopy was performed without difficulty. The patient tolerated the procedure well. The quality of the bowel preparation was good. Scope In: 9:50:35 AM Scope Withdrawal Time 0 hours 10 minutes 58 seconds Scope Out: 10:07:33 AM Total Procedure Duration Time 0 hours 16 minutes 58 seconds Findings: Hemorrhoids were found on perianal exam. Non-bleeding internal hemorrhoids were found. The hemorrhoids were Grade I (internal hemorrhoids that do not prolapse). The entire examined colon appeared normal. Impression: - Hemorrhoids found on perianal exam. - Non-bleeding internal hemorrhoids. - The entire examined colon is normal. - No specimens collected. Recommendation: - Discharge patient to home. - Resume previous diet. - Continue present medications. - Repeat colonoscopy in 10 years for screening purposes. Procedure Code(s): --- Professional --- G0121, PT, Colorectal cancer screening; colonoscopy on individual not meeting criteria for high risk Diagnosis Code(s): --- Professional --- Z12.11, Encounter for screening for malignant neoplasm of colon K64.0, First degree hemorrhoids CPT copyright 2021 [employer] [place] [employer]. All rights reserved. The codes documented in this report are preliminary and upon home health registered nurse review may be revised to meet current compliance requirements. MD Tiffany Pollock MD 09/26/2023 10:11:29 AM This report has been signed electronically. Number of Addenda: 0 Note Initiated On: 09/26/2023 9:44 AM
--- NOTE | 2023-09-26 10:12 | OP.CCLET_ITS ---
09/26/2023 Ngozi Paredes [place] [id number] [address] Re : Colonoscopy procedure for Violetta Jacinto Dear Dr. Paredes This procedure was performed on Tuesday, September 26, 2023. My impressions and recommendations are as follows: Impressions : - Hemorrhoids found on perianal exam. - Non-bleeding internal hemorrhoids. - The entire examined colon is normal. - No specimens collected. Recommendations : - Discharge patient to home. - Resume previous diet. - Continue present medications. - Repeat colonoscopy in 10 years for screening purposes. My findings are described in the full procedure note, which is enclosed. If I can be of further assistance, please feel free to contact me at Doctor phone number(s): , Work: . Sincerely, MD Tiffany Pollock MD 09/26/2023 10:11:29 AM This report has been signed electronically.
== END 2023-09-26 11:32 | disposition home or self-care (01) ==
LOC: EN 08:45 → AC 08:45
PROVIDERS: Anesthesiology; PCP Family Medicine; Referring Provider Family Medicine; Visit Provider Surgery
PROC: 0DJD8ZZ Inspection of Lower Intestinal Tract, Via Natural or Artificial Opening Endoscopic (ICD-10-PCS; CPT 45378; principal; 2023-09-26 09:55)
DX: Z12.11 Encounter for screening for malignant neoplasm of colon (principal); K64.0 First degree hemorrhoids
CPT/HCPCS: 45378; 81025; J7120; J2405

== ENCOUNTER → 2024-09-06 | Outpatient (CLI) | payer OTHER, SELFPAY ==
--- NOTE | 2024-09-06 15:11 | BI_ITS ---
MAMMOGRAPHY - BILATERAL SCREENING REASON FOR EXAM: Female, 48 years old. Routine annual screening examination. PERTINENT HISTORY: Non-contributory. History of prior right excisional breast biopsy which demonstrated to be a fibroadenoma. TECHNIQUE: Digital bilateral breast isrrael (3D mammographic acquisition) in the CC and MLO projections. 2-D mediolateral oblique (MLO) and craniocaudad (CC) views of both breasts were obtained. CAD: Full Field Digital Mammography with Computer Added Detection was performed. COMPARISON: Comparison is made with prior study of March 13, 2023 and May 31, 2022. FINDINGS: Breast Composition: The breasts are extremely dense, which lowers the sensitivity of mammography. There are no dominant masses or suspicious calcifications. No other significant abnormalities are identified. There has been no significant change since the prior study. BI/SCRN MAMM (CAD)W/ISRRAEL BILAT IMPRESSION: Stable bilateral screening mammogram. Yearly follow-up mammogram recommended. (A) ASSESSMENT CATEGORY: BIRADS Category 1: Negative. A letter regarding these results will be sent to the patient by the facility within 30 days. Approximately 10% of breast cancers are not detected by mammography. A normal mammogram should not delay biopsy of a clinically suspicious abnormality. [id number] Electronically Signed: Elmo Wilson MD at 8:18 EST ,
== END | disposition home or self-care (01) ==
LOC: OPBI 15:09
PROVIDERS: PCP Family Medicine; Referring Provider Family Medicine; Visit Provider Family Medicine
DX: Z12.31 Encounter for screening mammogram for malignant neoplasm of breast (principal)
CPT/HCPCS: 77063; 77067

== ENCOUNTER → 2025-04-22 | Outpatient (CLI) | payer OTHER, SELFPAY ==
--- NOTE | 2025-04-22 13:55 | BI_ITS ---
EXAM: DIAG MAMM W/CAD, BILAT 04/22/2025 CLINICAL HISTORY: F, Age 49 y/o , MASTODYNIA. Pain at the prior right breast biopsy site. 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 TECHNIQUE: Bilateral Diagnostic digital breast tomosynthesis with 2D and 3D images. Computer aided detection. COMPARISON: Prior exam(s) dated September 06, 2024.. FINDINGS: TISSUE DENSITY: The breast tissue is extremely dense which lowers the sensitivity of mammography. Bilateral Breast Mammographic Findings: No significant masses, calcifications or other abnormalities are identified. No suspicious masses, areas of developing architectural distortion, or suspicious calcifications. There has been no significant interval change. BI/DIAG MAMM W/CAD, BILAT IMPRESSION: With the patient's history of pain at the biopsy site in the right breast, targ eted sonographic correlation recommended. OVERALL FINAL ASSESSMENT BI-RADS 0: INCOMPLETE - NEED ADDITIONAL IMAGING EVALUATION. RECOMMENDATION: Ultrasound Recommended A letter with findings and recommendations will be mailed to the patient. Reading Location: [facility]
--- NOTE | 2025-04-22 13:55 | US_ITS ---
PROCEDURE: BREAST LIMITED UNILATERAL 04/22/2025 REASON FOR EXAM: MASTODYNIA TECHNIQUE: BREAST LIMITED UNILATERAL COMPARISON: Prior mammogram done earlier in the day.. FINDINGS: Right breast ultrasound was targeted to the lateral aspect of the right breast.. The breast tissue appears sonographically normal. No cyst, solid mass, or suspicious shadowing. US/Breast Limited Unilateral IMPRESSION: BI-RADS 1: NEGATIVE. RECOMMEND ANNUAL MAMMOGRAPHIC SCREENING. Follow-up code: Routine Follow-up [facility]
== END | disposition home or self-care (01) ==
LOC: OPBI 13:50
PROVIDERS: PCP Family Medicine; Referring Provider Family Medicine; Visit Provider Family Medicine
DX: N64.4 Mastodynia (principal)
CPT/HCPCS: 76642; 77062; 77066; G0279

== ENCOUNTER → 2025-07-30 | Outpatient (CLI) | payer OTHER, SELFPAY ==
[2025-07-30 11:57] LABS: Cholesterol 213 mg/dL (<=200); Low Density Lipoprotein Calc. 149 mg/dL; Triglycerides 79 mg/dL; Very Low Density Lipoprotein 16 mg/dL (5-40); cholesterol:hdl ratio screen 4.46
== END | disposition home or self-care (01) ==
LOC: LAB 10:52
PROVIDERS: PCP Family Medicine; Visit Provider Otolaryngology
DX: Z91.030 Bee allergy status (principal); E78.5 Hyperlipidemia, unspecified
CPT/HCPCS: 36415; 80061

== ENCOUNTER → 2025-10-01 | Outpatient (CLI) | payer OTHER, SELFPAY ==
--- NOTE | 2025-10-01 07:55 | BI_ITS ---
EXAM: SCRN MAMM (CAD)W/ISRRAEL BILAT DATE: 10/01/2025 CLINICAL HISTORY: F, Age 49 y/o , SCREEN No family history. Occasional right breast pain. TECHNIQUE: Procedure Code: [id number] Modality: MG Procedure: SCRN MAMM (CAD)W/ISRRAEL BILAT COMPARISON: Prior exam(s) dated April 22, 2025.. FINDINGS: TISSUE DENSITY: The breasts are extremely dense, which lowers the sensitivity of mammography. Bilateral Breast Mammographic Findings: No significant masses, calcifications or other abnormalities are identified. No suspicious masses, areas of developing architectural distortion, or suspicious calcifications. There has been no significant interval change. BI/SCRN MAMM (CAD)W/ISRRAEL BILAT IMPRESSION: Stable bilateral screening mammogram. OVERALL FINAL ASSESSMENT BI-RADS 1: NEGATIVE. RECOMMENDATION: Routine annual follow-up in 1 Year Additional Recommendation none A letter with findings and recommendations will be mailed to the patient. Reading Location: [place] [address]
--- OUTSIDE RECORDS SUMMARY | 2025-10-01 08:16 | XMS RPT_ITS | CCD ---
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 6121-5 #### [facility] CLIA [id number] [address] [place] [address] [place] Tiss Path Bx reporton 2024 CASE REPORT Normal [facility] Comment on above: Order Comment: Speci men Type: TISSUE SPECIMEN Ordering Facility: [facility] Address: [address] [place] [address] Result Comment: Surg ical Pathology Report Case: [id number] Authorizing Provider: Yary Das APRN.POINT OF CARE SPECIALIST Collected: 05/08/2025 08:53 AM Ordering Location: OB/Gynecology Received: 05/08/2025 02:58 PM Pathologist: Abhishek Villavicencio MD, PhD Specimen: Cervix, Biopsy Performed By: #### 6 6121-5 #### [facility] CLIA [id number] [address] [place] [address] [place] Order Comment: Speci men Type: FLUID SPECIMEN Ordering Facility: [facility] Address: [address] [place] [address] Result Comment: Gyne cologic Cytology Report Case: [id number] Authorizing Provider: Yary Das APRN.POINT OF CARE SPECIALIST Collected: 05/08/2025 08:53 AM Ordering Location: OB/Gynecology Received: 05/08/2025 02:52 PM First Screen: Yary Ruiz, CT, ASCP Rescreen: Reginald Durant, CT, ASCP Specimen: Pap Test, ThinPrep, Cervix Performed By: #### L [id number] #### [facility] CLIA [id number] [address] [place] [address] [place] FINAL PERFORMING LAB Normal [facility] Comment on above: Order Comment: Speci men Type: TISSUE SPECIMEN Ordering Facility: [facility] Address: [address] [place] [address] Result Comment: Diag nostic interpretation performed at: [facility], [address] [place] [id number] CLIA# [id number] Carbon Furnace Operator Helper: Pablo Crump MD Performed By: #### 6 6121-5 #### [facility] CLIA [id number] [address] [place] [address] [place] Order Comment: Speci men Type: FLUID SPECIMEN Ordering Facility: [facility] Address: [address] [place] [address] Result Comment: Tech nical component, skate hop screening performed at: [facility], [address] [place] [address] CLIA: [id number] Diagnostic interpretation performed at: [facility], [address] [place] [address] CLIA# [id number] Carbon Furnace Operator Helper: Pablo Crump MD Performed By: #### L [id number] #### [facility] CLIA [id number] [address] [place] [address] [place] Breast Limited Unilateralon 04-22-2025 Breast Limited Unilateral [facility] Imaging Services [address] [place], [place] [address] Breast Limited Unilateral MR#: [id number] Acct: [id number] Name: GINA GARCIAS Rep #: [id number] : 1975 F 49 From: Elmo orourke MD PCP: Dr. Ngozi Paredes MD Status: [facility] CLI Study: Breast Limited Unilateral Date of Exam: Exam# [id number] Ordering Dr: Ngozi Paredes MD PROCEDURE: BREAST LIMITED UNILATERAL 04/22/2025 REASON FOR EXAM: MASTODYNIA TECHNIQUE: BREAST LIMITED UNILATERAL COMPARISON: Prior mammogram done earlier in the day.. FINDINGS: Right breast ultrasound was targeted to the lateral aspect of the right breast.. The breast tissue appears sonographically normal. No cyst, solid mass, or suspicious shadowing. US/Breast Limited Unilateral IMPRESSION: BI-RADS 1: NEGATIVE. RECOMMEND ANNUAL MAMMOGRAPHIC SCREENING. Follow-up code: Routine Follow-up Reading Location: [facility] CC: Dr. Ngozi Paredes MD Machine Operator Farmworker: Signed Normal [facility] DIAG MAMM W/CAD, BILATon DIAG MAMM W/CAD, BILAT [facility] Imaging Services [address] [place], [place] [address] DIAG MAMM W/CAD, BILAT MR#: [id number] Acct: [id number] Name: GINA GARCIAS Rep #: [id number] : 1975 F 49 From: Elmo orourke MD PCP: Dr. Ngozi Paredes MD Status: [facility] Study: DIAG MAMM W/CAD, BILAT Date of Exam: 04/22/25 Exam# [id number] Ordering Dr: Ngozi Paredes MD EXAM: DIAG MAMM W/CAD, BILAT 04/22/2025 CLINICAL HISTORY: F, Age 49 y/o , MASTODYNIA. Pain at the prior right breast biopsy site. 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 TECHNIQUE: Bilateral Diagnostic digital breast tomosynthesis with 2D and 3D images. Computer aided detection. COMPARISON: Prior exam(s) dated September 06, 2024.. FINDINGS: TISSUE DENSITY: The breast tissue is extremely dense which lowers the sensitivity of mammography. Bilateral Breast Mammographic Findings: No significant masses, calcifications or other abnormalities are identified. No suspicious masses, areas of developing architectural distortion, or suspicious calcifications. There has been no significant interval change. BI/DIAG MAMM W/CAD, BILAT IMPRESSION: With the patient's history of pain at the biopsy site in the right breast, targeted sonographic correlation recommended. OVERALL FINAL ASSESSMENT BI-RADS 0: INCOMPLETE - NEED ADDITIONAL IMAGING EVALUATION. RECOMMENDATION: Ultrasound Recommended A letter with findings and recommendations will be mailed to the patient. Reading Location: [facility] CC: Dr. Ngozi Paredes MD Machine Operator Farmworker: Signed Normal [facility] SCRN MAMM (CAD)W/ISRRAEL BILATo n 09-06-2024 SCRN MAMM (CAD)W/ISRRAEL BILAT [facility] Imaging Services [address] [place] [address] SCRN MAMM (CAD)W/ISRRAEL BILAT MR#: [id number] Acct: [id number] Name: GINA GARCAIS Rep #: [id number] : 1975 F 48 From: Elmo orourke MD PCP: Dr. Ngozi Paredes MD Status: REG CLI Study: SCRN MAMM (CAD)W/ISRRAEL BILAT Date of Exam: 11/29 Exam# [id number] Ordering Dr: Ngozi Paredes MD [id number] MAMMOGRAPHY - BILATERAL SCREENING REASON FOR EXAM: Female, 48 years old. Routine annual screening examination. PERTINENT HISTORY: Non-contributory. History of prior right excisional breast biopsy which demonstrated to be a fibroadenoma. TECHNIQUE: Digital bilateral breast isrrael (3D mammographic acquisition) in the CC and MLO projections. 2-D mediolateral oblique (MLO) and craniocaudad (CC) views of both breasts were obtained. CAD: Full Field Digital Mammography with Computer Added Detection was performed. COMPARISON: Comparison is made with prior study of March 13, 2023 and May 31, 2022. FINDINGS: Breast Composition: The breasts are extremely dense, which lowers the sensitivity of mammography. There are no dominant masses or suspicious calcifications. No other significant abnormalities are identified. There has been no significant change since the prior study. BI/SCRN MAMM (CAD)W/ISRRAEL BILAT IMPRESSION: Stable bilateral screening mammogram. Yearly follow-up mammogram recommended. (A) ASSESSMENT CATEGORY: BIRADS Category 1: Negative. A letter regarding these results will be sent to the patient by the facility within 30 days. Approximately 10% of breast cancers are not detected by mammography. A normal mammogram should not delay biopsy of a clinically suspicious abnormality. [id number] Electronically Signed: Elmo Wilson MD at 8:18 EST , CC: Dr. Ngozi Paredes MD Machine Operator Farmworker: Signed Normal [facility] Laboratory - Chemistry and C hemistry - challengeOrdered By: Dany Burgess on 09-26-2023 HCG ( test) Ql (U) Negative [facility] Comment on above: Very dilute urine sp ecimens, as indicated by a low specificgravity, may not contain denial management representative levels of hCG. If is still suspected, a first morning urinespecimen should be collected 48 hours later and tested. Absolute lymphocyte countOrd ered By: Dr. Paredes on 01-28-2023 Lymphocytes Auto (Unsp spec) [#/Vol] 2.37 10*3/uL 0.83-4.51 [facility] Basophil percentageOrdered B y: Dr. Paredes on 01-28-2023 Basophils/100 WBC (Bld) 0.6 % 0-1 [facility] Bilirubin [Mass/Vol] 0.70 mg/dL 0.20-1.00 [facility] Comment on above: For patients on eltr ombopag therapy, use of Dimension [place] TBIL is not recommended. Chloride [Moles/Vol] 106 mmol/L 98-107 [facility] Cholesterol [Mass/Vol] 187 mg/dL <200 [facility] Comment on above: <200 mg/dL Desirable 200-240 mg/dL Borderline >240 mg/dL High Risk Eosinophils/100 WBC (Bld) 1.8 % 0-5 [facility] Glucose [Mass/Vol] 95 mg/dL 74-106 [facility] Neutrophils (Bld) [#/Vol] 2.5 10*3/uL 2.0-7.7 [facility] Neutrophils/100 WBC (Bld) 46.9 % 47-70 [facility] Potassium [Moles/Vol] 3.6 mmol/L 3.5-5.1 [facility] Protein [Mass/Vol] 7.2 g/dL 6.4-8.2 [facility] Sodium [Moles/Vol] 136 mmol/L 136-145 [facility] Triglyceride [Mass/Vol] 59 mg/dL <199 [facility] Comment on above: The drugs N-Acetylcy steine and Metamizole may falsely depress this assay.Serum Triglycerides Reference Interval Normal <150 mg/dL Borderline high 150 - 199 mg/dL High 200 - 499 mg/dL Very High > or = 500 mg/dL WBC (Bld) [#/Vol] 5.4 10*3/uL 4.4-11.0 [facility] Blood erythrocytes count (nu mber/volume)Ordered By: Dr. Paredes on 01-28-2023 RBC (Bld) [#/Vol] 4.57 10*6/uL 4.2-5.4 [facility] Blood hemoglobin measurement (mass/volume)Ordered By: Dr. Paredes on 01-28-2023 Hemoglobin (Bld) [Mass/Vol] 13.7 g/dL 12.0-15.0 [facility] Blood lymphocytes/100 leukoc ytesOrdered By: Dr. Paredes on 01-28-2023 Lymphocytes/100 WBC (Bld) 43.7 % 19-41 [facility] Blood monocytes/100 leukocyt esOrdered By: Dr. Paredes on 01-28-2023 Monocytes/100 WBC (Bld) 6.6 % 0-10 [facility] Blood platelet mean volumeOr dered By: Dr. Paredes on 01-28-2023 Platelet mean volume (Bld) [Entitic vol] 9.6 fL 6.2-12.0 [facility] Determination of erythrocyte mean corpuscular volume (MCV)Ordered By: Dr. Paredes on 01-28-2023 MCV (RBC) [Entitic vol] 91.5 fL 81-99 [facility] Hematocrit Auto (Bld) [Volum e fraction]Ordered By: Dr. Paredes on 01-28-2023 Hematocrit (Bld) [Volume fraction] 41.8 % 37-47 [facility] Laboratory - Chemistry and C hemistry - challengeOrdered By: Dr. Paredes on 01-28-2023 ALP [Catalytic activity/Vol] 48 U/L 45-117 [facility] ALT [Catalytic activity/Vol] 32 U/L 13-56 [facility] CO2 [Moles/Vol] 27.0 mmol/L 21.0-32.0 [facility] Globulin (S) [Mass/Vol] 3.0 g/dL 2.2-4.2 [facility] Urea nitrogen/Creatinine [Mass ratio] 16.5 mg/mg 10-20 [facility] Laboratory - Hematology and Cell countsOrdered By: Dr. Paredes on 01-28-2023 Erythrocyte distribution width (RBC) [Entitic vol] 42.7 fL 35.1-43.9 [facility] Erythrocyte distribution width (RBC) [Ratio] 12.8 % 11.6-14.6 [facility] Immature granulocytes/100 WBC (Bld) 0.400 % 0.0-0.9 [facility] Comment on above: IG% - Immature Granu locytes (promyelocytes, myelocytes and metamyelocytes) > 1% indicates that a LEFT SHIFT is Present. MCH (RBC) [Entitic mass] 30.0 pg 27.0-32.0 [facility] Nucleated RBC/100 WBC (Bld) [Ratio] 0 % 0-5 [facility] MCHC Auto (RBC) [Mass/Vol]Or dered By: Dr. Paredes on 01-28-2023 MCHC (RBC) [Mass/Vol] 32.8 g/dL 32-36 [facility] No Panel InformationOrdered By: Dr. Paredes on 01-28-2023 Estimated GFR (MDRD) Amer 93 mL/min >60 [facility] Comment on above: GFR Calc Estimated GFR (MDRD) Non-Af Amer 77 mL/min >60 [facility] Comment on above: Non- GFR Calc Platelets bldOrdered By: Dr. Paredes on 01-28-2023 Platelets (Bld) [#/Vol] 296 10*3/uL 150-450 [facility] Serum or plasma albumin adelaide urement (mass/volume)Ordered By: Dr. Paredes on 01-28-2023 Albumin [Mass/Vol] 4.2 g/dL 3.2-5.0 [facility] Serum or plasma albumin/glob ulin mass ratioOrdered By: Dr. Paredes on 01-28-2023 Albumin/Globulin [Mass ratio] 1.4 {ratio} 0.9-2.4 [facility] Serum or plasma calcium adelaide urement (mass/volume)Ordered By: Dr. Paredes on 01-28-2023 Calcium [Mass/Vol] 9.1 mg/dL 8.5-10.1 [facility] Serum or plasma cholesterol in HDL measurement (mass/volume)Ordered By: Dr. Paredes on 01-28-2023 Cholesterol in HDL [Mass/Vol] 50 mg/dL >40 [facility] Comment on above: The drugs N-Acetylcy steine and Metamizole may falsely depress this assay. Reference Range HDL <40 mg/dL Low HDL Cholesterol HDL >or= 60 mg/dL High HDL Cholesterol Serum or plasma cholesterol in VLDL measurement (mass/volume)Ordered By: Dr. Paredes on 01-28-2023 Cholesterol in VLDL [Mass/Vol] 12 mg/dL 5-40 [facility] Serum or plasma creatinine m easurement (mass/volume)Ordered By: Dr. Paredes on 01-28-2023 Creatinine [Mass/Vol] 0.85 mg/dL 0.55-1.02 [facility] Comment on above: The validity of the calculated GFR & GFRAA in patients over 70 years has not been determined. Clinical correlation is essential. Serum or plasma low density lipoprotein (LDL) cholesterol measurement (mass/volume)Ordered By: Dr. Paredes on 01-28-2023 Cholesterol in LDL [Mass/Vol] 125 mg/dL 0-130 [facility] Serum or plasma urea nitroge n measurement (mass/volume)Ordered By: Dr. Paredes on 01-28-2023 Urea nitrogen [Mass/Vol] 14 mg/dL 7-18 [facility] Thin prep Papanicolaou smear with manual screeningOrdered By: Dr. Paredes on 01-28-2023 Thin prep Papanicolaou smear with manual screening 19 U/L 15-37 [facility] Thin prep Papanicolaou smear with manual screening 3 5-15 [facility] Laboratory - Chemistry and C hemistry - challengeon 05-31-2022 HCG ( test) Ql (U) Negative [facility] Work Phone: Comment on above: Very dilute urine sp ecimens, as indicated by a low specificgravity, may not contain denial management representative levels of hCG. If is still suspected, a first morning urinespecimen should be collected 48 hours later and tested. Vital Signs Date Time Vital Sign Value Performing Clinician Luis Alberto engle 05-08-2025 08:18-0400 Body height 170.2 cm Yary Das APRN.CNP Work Phone: [facility] 05-08-2025 08:18-0400 Body mass index (BMI) [Ratio] 21.3 kg/m2 Yary Das APRN.CNP Work Phone: [facility] 05-08-2025 08:18-0400 Body weight 61.69 kg Yary Das APRN.POINT OF CARE SPECIALIST Work Phone: [facility] 05-08-2025 08:18-0400 Diastolic blood pressure 66 mm[Hg] Yary Das APRN.POINT OF CARE SPECIALIST Work Phone: [facility] 05-08-2025 08:18-0400 Systolic blood pressure 112 mm[Hg] Yary Das APRN.POINT OF CARE SPECIALIST Work Phone: [facility] 09-26-2023 10:29-0500 Body temperature 99.2 [degF] Dr. Ngozi Paredes Work Phone: [facility] 09-26-2023 10:29-0500 Diastolic blood pressure 69 mm[Hg] Dr. Ngozi Paredes Work Phone: [facility] 09-26-2023 10:29-0500 Heart rate 67 /min Dr. Ngozi Paredes Work Phone: [facility] 09-26-2023 10:29-0500 Respiratory rate 16 /min Dr. Ngozi Paredes Work Phone: [facility] 09-26-2023 10:29-0500 SaO2% (BldA) [Mass fraction] 100 % Dr. Ngozi Paredes Work Phone: [facility] 09-26-2023 10:29-0500 Systolic blood pressure 101 mm[Hg] Dr. Ngozi Paredes Work Phone: [facility] 09-26-2023 09:15-0500 Body height 167.[address] Ngozi Paredes Work Phone: [facility] 09-26-2023 09:15-0500 Body mass index (BMI) [Ratio] 22.7 kg/m2 Dr. Ngozi Paredes Work Phone: [facility] 09-26-2023 09:15-0500 Body weight [address] Ngozi Paredes Work Phone: [facility] 08-01-2023 09:20-0400 Body mass index (BMI) [Ratio] 21.7 kg/m2 Dr. Ngozi Paredes Work Phone: [facility] 08-01-2023 09:20-0400 Body weight 61.[address] Ngozi Paredes Work Phone: [facility] 02-06-2023 08:22-0400 Body height 169 cm Althea Arlington TUNNEL DRIER OPERATOR.POINT OF CARE SPECIALIST Work Phone: [facility] 02-06-2023 08:22-0400 Body weight 63.5 kg Althea Ulises TUNNEL DRIER OPERATOR.POINT OF CARE SPECIALIST Work Phone: [facility] 02-06-2023 08:22-0400 Diastolic blood pressure 64 mm[Hg] Althea Arlington TUNNEL DRIER OPERATOR.POINT OF CARE SPECIALIST Work Phone: [facility] 02-06-2023 08:22-0400 Systolic blood pressure 106 mm[Hg] Althea Montgomery SHILPA Work Phone: [facility] 05-31-2022 13:59-0400 Diastolic blood pressure 62 mm[Hg] Dr. Ngozi Paredes Work Phone: [facility] Work Phone: 05-31-2022 13:59-0400 Heart rate 70 /min Dr. Ngozi Paredes Work Phone: [facility] Work Phone: 05-31-2022 13:59-0400 Respiratory rate 16 /min Dr. Ngozi Paredes Work Phone: [facility] Work Phone: 05-31-2022 13:59-0400 SaO2% (BldA) [Mass fraction] 98 % Dr. Ngozi Paredes Work Phone: [facility] Work Phone: 05-31-2022 13:59-0400 Systolic blood pressure 100 mm[Hg] Dr. Ngozi Paredes Work Phone: [facility] Work Phone: 05-31-2022 12:45-0400 Body temperature 97.9 [degF] Dr. Ngozi Paredes Work Phone: [facility] Work Phone: 05-31-2022 10:04-0400 Body height 167.[address] Ngozi Paredes Work Phone: [facility] Work Phone: 05-31-2022 10:04-0400 Body mass index (BMI) [Ratio] 21.3 kg/m2 Dr. Ngozi Paredes Work Phone: [facility] Work Phone: 07-26-2022 10:04-0400 Body weight 59.[address] Ngozi Paredes Work Phone: [facility] Work Phone: 04-07-2022 09:52-0400 Body height 167.[address] Ngozi Paredes Work Phone: [facility] Work Phone: 04-07-2022 09:52-0400 Body mass index (BMI) [Ratio] 22.3 kg/m2 Dr. Ngozi Paredes Work Phone: [facility] Work Phone: 04-07-2022 09:52-0400 Body temperature 97.6 [degF] Dr. Ngozi Paredes Work Phone: [facility] Work Phone: 04-07-2022 09:52-0400 Body weight 62.[address] Ngozi Paredes Work Phone: [facility] Work Phone: 04-07-2022 09:52-0400 Diastolic blood pressure 74 mm[Hg] Dr. Ngozi Paredes Work Phone: [facility] Work Phone: 04-07-2022 09:52-0400 Heart rate 83 /min Dr. Ngozi Paredes Work Phone: [facility] Work Phone: 04-07-2022 09:52-0400 Respiratory rate 18 /min Dr. Ngozi Paredes Work Phone: [facility] Work Phone: 04-07-2022 09:52-0400 SaO2% (BldA) [Mass fraction] 100 % Dr. Ngozi Paredes Work Phone: [facility] Work Phone: 04-07-2022 09:52-0400 Systolic blood pressure 108 mm[Hg] Dr. Ngozi Paredes Work Phone: [facility] Work Phone: Encounters Encounter Date Encounter Type Care Provider Facility Start: 07-30-2025 End: 07-30-2025 ambulatory Ngozi Paredes Facility:[facility] Start: 05-13-2025 End: 07-13-2025 Follow-up encounter Rosalia Salazar MD Work Phone: OB/Gynecology Start: 05-08-2025 End: 05-08-2025 Patient encounter procedure Yary Das APRN.POINT OF CARE SPECIALIST Work Phone: OB/Gynecology Comment on above: Encounter for gyneco logical examination (general) (routine) without abnormal findings (Primary Dx); Encounter for screening mammogram for breast cancer; Dense breast tissue; Cervical polyp; Screening for cervical cancer; Screening for HPV (human papillomavirus) Start: 05-08-2025 End: 05-08-2025 Patient encounter status Yary Das APRN.POINT OF CARE SPECIALIST Work Phone: [facility] Start: 05-08-2025 End: 05-08-2025 ambulatory NGOZI PAREDES Facility:[facility] Start: 05-08-2025 Encounter for gynecological examination (general) (routine) without abnormal findings YARY DAS [facility] Start: 04-22-2025 ambulatory Ngozi Paredes Facility: [facility] Start: 09-06-2024 End: 09-06-2024 ambulatory Ngozi Paredes Facility:[facility] Start: 09-26-2023 Non-patient / Non-visit Dr. Torrey Paredes Work Phone: [facility] Start: 09-26-2023 End: 09-26-2023 Admission to same day surgery center Dr. Ngozi Paredes Work Phone: [facility] Work Phone: Start: 09-26-2023 End: 09-26-[address] Ngozi Paredes Work Phone: [facility] Work Phone: Start: 08-01-2023 Non-patient / Non-visit Dr. Torrey Paredes Work Phone: [facility] Work Phone: Start: 03-13-2023 End: 03-13-2023 ambulatory [facility] Work Phone: Start: 03-13-2023 End: 03-13-2023 Patient encounter procedure [facility] Start: 02-06-2023 End: 02-06-2023 Patient encounter procedure Althea Montgomery APRN.POINT OF CARE SPECIALIST Work Phone: OB/Gynecology Comment on above: Encounter for gyneco logical examination without abnormal finding (Primary Dx); Encounter for screening for malignant neoplasm of cervix; Special screening examination for human papillomavirus (HPV) Start: 02-06-2023 End: 02-06-2023 Patient encounter status Althea Montgomery APRN.POINT OF CARE SPECIALIST Work Phone: OB/Gynecology Start: 01-28-2023 End: 01-28-2023 ambulatory [facility] Work Phone: Start: 01-28-2023 End: 01-28-2023 Patient encounter procedure [facility] Start: 05-31-2022 Non-patient / Non-visit Dr. Torrey Paredes Work Phone: [facility] Start: 05-31-2022 End: 05-31-2022 Admission to same day surgery center Dr. Ngozi Paredes Work Phone: [facility] Start: 05-10-2022 End: 05-10-[address] Ngozi Paredes Work Phone: [facility] Start: 04-18-2022 Non-patient / Non-visit Dr. Torrey Paredes Work Phone: [facility] Start: 04-18-2022 End: 04-18-[address] Ngozi Paredes Work Phone: [facility] Start: 04-07-2022 End: 04-07-[address] Ngozi Paredes Work Phone: [facility] Start: 04-01-2022 End: 04-01-2022 Patient encounter procedure [facility] Procedures Date Procedure Procedure Detail Performing Clinician Start: 01-29-2024 Lipid 1996 panel - S delbert or Plasma Yary Das APRN.POINT OF CARE SPECIALIST Work Phone: Start: 09-26-[address] Ngozi Paredes Work Phone: Start: 03-13-2023 Ultrasonography of breast Start: 03-13-2023 Bilateral mammography Start: 05-31-[address] Deirdre Paredes Work Phone: Start: 05-31-2022 Breast, Lumpectomy,S N w/ Neoprobe (Right) Dr. Ngozi Paredes Work Phone: Start: 05-10-2022 MRI of bilateral georgina asts with contrast Dr. Ngozi Paredes Work Phone: Start: 04-18-2022 Ultrasonography guid ed biopsy of breast Dr. Ngozi Paredes Work Phone: Start: 04-18-2022 US Breast Bx EA Add Lesion Dr. Ngozi Paredes Work Phone: Start: 04-01-2022 Ultrasonography of breast Start: 04-01-2022 Bilateral mammography Start: 08-04-2021 Mammography Althea story TUNNEL DRIER OPERATOR.POINT OF CARE SPECIALIST Work Phone: Plan of Treatment Date Care Activity Detail Author Start: 05-08-2030 Screening for malign ant neoplasm of cervix Cervical Cancer Screening [facility] Start: 01-28-2029 Lipid panel Lipid Screening [facility] Start: 02-07-2028 Screening for malign ant neoplasm of cervix Cervical Cancer Screening [facility] Start: 01-28-2027 Diabetes Screening Diabetes Screenin g [facility] Start: 05-11-2026 End: 05-11-2026 Patient encounter procedure 05/11/2026 8:15 AM EDT Office Visit OB/Gynecology [address] [place] [address] Yary Das APRN.POINT OF CARE SPECIALIST [address] [place], [place] [id number] Annual OB/Gynecology Comment on above: Annual Start: 07-07-2025 Influenza vaccination Influenza Vacc ine (#1) [facility] Start: 07-07-2024 Covid-19 Vaccine ( season) Covid-19 Vaccine () [facility] Start: 09-26-2023 Patient discharge [facility] Start: 01-31-2023 HPV TESTING HPV TESTING [facility] Start: 01-31-2023 PAP TESTING PAP TESTING [facility] Start: 11-06-2022 DEPRESSION ASSESSMENT DEPRESSION ASS ESSMENT [facility] Start: 10-04-2022 Urine microalbumin profile [facility] Start: 2022 COLOGUARD (FIT-DNA) COLOGUARD (FIT-D NA) [facility] Start: 2022 Colonoscopy COLONOSCOPY [facility] Start: 2022 COLORECTAL CANCER SCREENING COLORECTAL CANCER SCREENING [facility] Start: [address] COLONOGRAPHY [facility] Start: 2022 DIABETES SCREEN DIABETES SCREEN [facility] Start: 2022 FECAL OCCULT BLOOD FECAL OCCULT BLOO D [facility] Start: 2022 LIPID SCREEN LIPID SCREEN [facility] Start: 2022 Screening for malign ant neoplasm of colon [facility] Start: 2022 SIGMOIDOSCOPY SIGMOIDOSCOPY [facility] Start: 08-04-2022 Mammography MAMMOGRAM [facility] Start: 08-04-2022 Screening for malign ant neoplasm of breast Mammogram Screening [facility] Start: 05-31-2022 [facility] Start: 04-18-2022 Bx breast w/device 1 st lesion ultrasound guid BX BREAST 1ST LESION US IMAG [facility] Work Phone: Start: 04-18-2022 Bx breast w/device a ddl lesion ultrasound guid BX BREAST ADD LESION US IMAG [facility] Work Phone: Start: 1995 Anxiety Screening Anxiety Screening [facility] Start: 1995 Depression Screening Depression Scre ening [facility] Start: 1995 HEPATITIS C SCREENING HEPATITIS C [facility] Start: 1995 Hepatitis C screening Hepatitis C [facility] Start: 1995 HIV SCREENING HIV SCREENING [facility] Start: 1995 HIV screening HIV Screening [facility] PAP TEST PAP TEST Lab [facility] Encounter for screening for malignant neoplasm of cervix Special screening examination for human papillomavirus (HPV) 02/06/2023 9:22 AM EDT [facility] Work Phone: PAP TEST PAP TEST Lab [facility] Cervical polyp Screening for cervical cancer Screening for HPV (human papillomavirus) Ordered: 05/08/2025 [facility] Comment on above: Ordered: 05/08/2025 Patient referral [facility] Work Phone: Tissue Pathology bio psy report SURGICAL PATHOLOGY Lab Routine Cervical polyp Ordered: 05/08/2025 [facility] Work Phone: Comment on above: Ordered: 05/08/2025 Immunizations Immunization Date Immunization Notes Care Provider Bret chan 09-07-2022 influenza, injectabl e, quadrivalent, preservative free Yary Haury TUNNEL DRIER OPERATOR.POINT OF CARE SPECIALIST Work Phone: [facility] 09-07-2022 influenza virus vacc ine, unspecified formulation Yary Haury TUNNEL DRIER OPERATOR.POINT OF CARE SPECIALIST Work Phone: [facility] 08-25-2021 influenza, injectabl e, quadrivalent, preservative free Yary Haury TUNNEL DRIER OPERATOR.POINT OF CARE SPECIALIST Work Phone: [facility] 08-14-2020 influenza, injectabl e, quadrivalent, preservative free Yary Haury TUNNEL DRIER OPERATOR.POINT OF CARE SPECIALIST Work Phone: [facility] 08-07-2019 influenza, seasonal, injectable Althea Ulises TUNNEL DRIER OPERATOR.POINT OF CARE SPECIALIST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
== END | disposition home or self-care (01) ==
LOC: OPBI 07:54
PROVIDERS: PCP Family Medicine; Referring Provider Family Medicine; Visit Provider Family Medicine
DX: Z12.31 Encounter for screening mammogram for malignant neoplasm of breast (principal)
CPT/HCPCS: 77063; 77067